=== PATIENT | female | born 1950 | race Caucasian/White ===

== ENCOUNTER 2020-04-13 13:12 | Inpatient (IN) ==
[2020-04-13] MEDS ORDERED: FUROSEMIDE 100 MG/10 ML VIAL IV STA (13:44)
[2020-04-13 14:11] LABS: Albumin 3.4 G/DL (3.4-5.0); Bilirubin,Total 0.7 MG/DL (0.2-1.0); Osmolality,Calculated 285.4 MOS/KG (273-304); Total Protein 6.6 G/DL (6.4-8.3)
[2020-04-13 14:29] LABS: Basophils # 0.1 10*3/uL (0.0-0.2); Basophils % 0.6 % (0.0-0.8); Eosinophils # 0.2 10*3/uL (0.0-0.87); Hematocrit 37.1 VOL% (35.7-47.0); Hemoglobin 10.5 GM/DL (12.0-16.0); Immature Granulocytes % 0.2 %; Immature Granulocytes Absolute 0.02 #; Lymphocytes # 1.9 10*3/uL (1.4-4.0); Lymphocytes % 21.9 % (21.3-54.2); Mean Corpuscular HGB Conc 28.3 GM/DL (32-36); Mean Corpuscular Volume 70.4 FL (87-102); Mean Platelet Volume 10.6 FL (9.6-12.0); Monocytes % 8.6 % (1.7-12.7); Neutrophils % 66.7 % (38.7-73.9); Platelet Count 419 T/CUMM (130-400); Red Blood Count 5.27 MC/CUMM (3.8-5.5); Red Cell Distribution Width 15.9 % (9.3-17.3); White Blood Count 8.5 T/CUMM (4-12)
[2020-04-13] MEDS ORDERED: DEXTROSE 50% 25 GM/50 ML VIAL IV PRN (15:28)
[2020-04-13] MEDS ORDERED: MAGNESIUM SULF RIDER 4 GM in PREMIX 1 EACH IV PRN (15:28)
[2020-04-13] MEDS ORDERED: MAGNESIUM SULF RIDER 2 GM in PREMIX 1 EACH IV PRN (15:28)
[2020-04-13] MEDS ORDERED: POTASSIUM CHLORIDE RIDER 10 MEQ in PREMIX 1 EACH IV PRN (15:28)
[2020-04-13] MEDS ORDERED: POTASSIUM CHLORIDE 20 MEQ/15 ML UDCUP PER TUBE PRN (15:28)
[2020-04-13] MEDS ORDERED: GLUCAGON 1 MG VIAL IM PRN (15:28)
[2020-04-13] MEDS ORDERED: diphenhydrAMINE CAP 25 MG CAPSULE PO PRN (15:35)
[2020-04-13] MEDS ORDERED: hydrALAZINE 20 MG/1 ML VIAL IV PRN (15:35)
[2020-04-13] MEDS ORDERED: CALCIUM CARBONATE CHEW 500 MG TABLET PO PRN (15:35)
[2020-04-13] MEDS ORDERED: PROMETHAZINE 25 MG TABLET PO PRN (15:35)
[2020-04-13] MEDS ORDERED: guaiFENesin/DM ER 600-30 MG TABLET PO PRN (15:35)
[2020-04-13] MEDS ORDERED: ACETAMINOPHEN 325 MG TABLET PO PRN (15:35)
[2020-04-13] MEDS ORDERED: NICOTINE 21 MG/24 HR PATCH TRANSDERM PRN (15:35)
[2020-04-13] MEDS ORDERED: DOCUSATE SODIUM 100 MG CAPSULE PO PRN (15:35)
[2020-04-13] MEDS ORDERED: ONDANSETRON 4 MG/2 ML VIAL IV PRN (15:35)
[2020-04-13] MEDS ORDERED: BISACODYL 5 MG TABLET PO PRN (15:35)
[2020-04-13] MEDS ORDERED: MORPHINE 4 MG/1 ML VIAL IV PRN (15:35)
[2020-04-13] MEDS ORDERED: PROMETHAZINE 25 MG/1 ML VIAL IM PRN (15:35)
[2020-04-13] MEDS ORDERED: ALUMINUM/MAGNES/SIMETH MAX STR 30 ML UDCUP PO PRN (15:35)
[2020-04-13] MEDS ORDERED: carvediloL 3.125 MG TABLET PO STA (15:35)
[2020-04-13] MEDS ORDERED: SIMETHICONE CHEW 125 MG TABLET PO PRN (15:35)
[2020-04-13] MEDS ORDERED: LACTULOSE 20 GM/30 ML UDCUP PO PRN (15:35)
[2020-04-13 15:41] LABS: Hypochromasia 1+; Microcytosis 2+; Poikilocytosis 1+
[2020-04-13] MEDS ORDERED: ENOXAPARIN 40 MG/0.4 ML SYRINGE SUBCUT STA (15:41)
[2020-04-13 15:42] LABS: Platelet Estimate Normal
[2020-04-13 15:57] LABS: Ferritin 14.1 ng/ml (8-252)
[2020-04-13] MEDS ORDERED: ENOXAPARIN 40 MG/0.4 ML SYRINGE SUBCUT SCH (16:00)
[2020-04-13] MEDS: INSULIN REGULAR 100 UNIT/ML SUBCUT SCH ×2 (17:18→21:30)
[2020-04-13] MEDS: AZITHROMYCIN INJ 500 MG in SODIUM CHLORIDE 0.9% 250 ML IV SCH (21:30)
[2020-04-13] MEDS: cefTRIAXone 1,000 MG in SYRINGE 1 EACH IV SCH (21:45)
[2020-04-13] MEDS: carvediloL 6.25 MG TABLET PO SCH (22:20)
[2020-04-14] MEDS: ALBUTEROL/IPRATROPIUM 3 ML NEB RESP TX SCH ×2 (01:10→19:09)
[2020-04-14 06:10] LABS: Basophils # 0.1 10*3/uL (0.0-0.2); Eosinophils # 0.4 10*3/uL (0.0-0.87); Eosinophils % 5.1 % (0.00-10.9); Hematocrit 35.5 VOL% (35.7-47.0); Immature Granulocytes % 0.4 %; Immature Granulocytes Absolute 0.03 #; Lymphocytes # 2.2 10*3/uL (1.4-4.0); Lymphocytes % 29.7 % (21.3-54.2); Mean Corpuscular HGB Conc 28.5 GM/DL (32-36); Mean Corpuscular Volume 71.3 FL (87-102); Mean Platelet Volume 10.4 FL (9.6-12.0); Monocytes % 9.4 % (1.7-12.7); Neutrophils % 54.4 % (38.7-73.9); Platelet Count 427 T/CUMM (130-400); Red Blood Count 4.98 MC/CUMM (3.8-5.5); Red Cell Distribution Width 16.1 % (9.3-17.3); White Blood Count 7.2 T/CUMM (4-12)
[2020-04-14 06:15] LABS: Bilirubin,Total 1.6 MG/DL (0.2-1.0); Calcium 8.9 MG/DL (8.5-10.1); Osmolality,Calculated 276.8 MOS/KG (273-304); Total Protein 6.2 G/DL (6.4-8.3)
[2020-04-14 06:21] LABS: Thyroid Stimulating Hormone 6.9 uIU/ml (0.358-3.74)
[2020-04-14 06:24] LABS: Risk Ratio 2.7
[2020-04-14 06:35] LABS: Hemoglobin 10.1 GM/DL (12.0-16.0)
[2020-04-14 06:40] LABS: Hypochromasia 1+; Microcytosis 2+; Ovalocytes Slight
[2020-04-14 06:42] LABS: Target Cells Slight
[2020-04-14 06:45] LABS: Platelet Estimate Increased
[2020-04-14 08:18] LABS: INR 1.1; PT Patient Result 11.7 SECS (9.8-11.9)
[2020-04-14] MEDS ORDERED: LISINOPRIL/HCTZ 20-25 MG TABLET PO SCH (09:00)
[2020-04-14 10:09] LABS: Lymphocytes,Pleural Fluid 83 %; Monocytes,Pleural Fluid 8 %; Neutrophils,Pleural Fluid 9 %; RBC,Pleural Fluid 712 T/CUMM
[2020-04-14] MEDS: INSULIN REGULAR 100 UNIT/ML SUBCUT SCH ×4 (10:22→21:46)
[2020-04-14 10:49] LABS: Total Protein,Body Fluid 2.8 G/DL
[2020-04-14] MEDS: ASPIRIN EC 81 MG TABLET PO SCH (11:35)
[2020-04-14] MEDS: carvediloL 6.25 MG TABLET PO SCH ×2 (11:35→21:44)
[2020-04-14] MEDS: PANTOPRAZOLE 40 MG TABLET PO SCH (11:35)
[2020-04-14] MEDS: FUROSEMIDE 40 MG/4 ML VIAL IV SCH ×2 (11:37→16:56)
[2020-04-14] MEDS: GLIMEPIRIDE 4 MG TABLET PO SCH (11:37)
[2020-04-14] MEDS: POTASSIUM CHLORIDE 20 MEQ TABLET PO PRN (16:57)
[2020-04-14] MEDS: AZITHROMYCIN INJ 500 MG in SODIUM CHLORIDE 0.9% 250 ML IV SCH (21:45)
[2020-04-14] MEDS: cefTRIAXone 1,000 MG in SYRINGE 1 EACH IV SCH (21:46)
[2020-04-15] MEDS: ALBUTEROL/IPRATROPIUM 3 ML NEB RESP TX SCH ×4 (01:06→20:38)
[2020-04-15] MEDS ORDERED: LORATADINE 10 MG TABLET PO PRN (05:05)
[2020-04-15] MEDS: FLUTICASONE 50 MCG NASAL SPRAY 16 GM BOTTLE BOTH NARES PRN (05:49)
[2020-04-15 06:30] LABS: Albumin 2.6 G/DL (3.4-5.0); Bilirubin,Total 0.5 MG/DL (0.2-1.0); Calcium 8.3 MG/DL (8.5-10.1); Osmolality,Calculated 279.8 MOS/KG (273-304); Total Protein 5.6 G/DL (6.4-8.3)
[2020-04-15 06:40] LABS: Basophils # 0.1 10*3/uL (0.0-0.2); Basophils % 0.6 % (0.0-0.8); Eosinophils # 0.3 10*3/uL (0.0-0.87); Eosinophils % 2.9 % (0.00-10.9); Hematocrit 35.5 VOL% (35.7-47.0); Immature Granulocytes % 0.3 %; Immature Granulocytes Absolute 0.03 #; Lymphocytes % 22.8 % (21.3-54.2); Mean Corpuscular HGB Conc 28.2 GM/DL (32-36); Mean Corpuscular Volume 71.9 FL (87-102); Mean Platelet Volume 10.6 FL (9.6-12.0); Monocytes % 10.3 % (1.7-12.7); Neutrophils % 63.1 % (38.7-73.9); Platelet Count 406 T/CUMM (130-400); Red Blood Count 4.94 MC/CUMM (3.8-5.5); White Blood Count 8.7 T/CUMM (4-12)
[2020-04-15 06:44] LABS: Anisocytosis 1+; Hypochromasia Slight; Platelet Estimate Normal
[2020-04-15] MEDS: INSULIN REGULAR 100 UNIT/ML SUBCUT SCH ×4 (09:00→21:31)
[2020-04-15] MEDS ORDERED: LOSARTAN 25 MG TABLET PO SCH (09:00)
[2020-04-15] MEDS: PANTOPRAZOLE 40 MG TABLET PO SCH (09:24)
[2020-04-15] MEDS: ASPIRIN EC 81 MG TABLET PO SCH (09:25)
[2020-04-15] MEDS: FUROSEMIDE 40 MG/4 ML VIAL IV SCH ×2 (09:25→15:09)
[2020-04-15] MEDS: GLIMEPIRIDE 4 MG TABLET PO SCH (09:25)
[2020-04-15] MEDS: carvediloL 6.25 MG TABLET PO SCH ×2 (09:25→21:30)
[2020-04-15] MEDS: ENOXAPARIN 40 MG/0.4 ML SYRINGE SUBCUT SCH ×2 (09:32→21:30)
[2020-04-15] MEDS: AZITHROMYCIN INJ 500 MG in SODIUM CHLORIDE 0.9% 250 ML IV SCH (21:24)
[2020-04-15] MEDS: cefTRIAXone 1,000 MG in SYRINGE 1 EACH IV SCH (21:30)
[2020-04-16] MEDS: ALBUTEROL/IPRATROPIUM 3 ML NEB RESP TX SCH ×4 (03:25→19:12)
[2020-04-16 05:33] LABS: Basophils % 0.5 % (0.0-0.8); Eosinophils # 0.2 10*3/uL (0.0-0.87); Eosinophils % 2.8 % (0.00-10.9); Hematocrit 32.1 VOL% (35.7-47.0); Immature Granulocytes % 0.3 %; Immature Granulocytes Absolute 0.02 #; Lymphocytes # 2.3 10*3/uL (1.4-4.0); Lymphocytes % 28.2 % (21.3-54.2); Mean Corpuscular Volume 70.9 FL (87-102); Mean Platelet Volume 10.6 FL (9.6-12.0); Monocytes % 11.9 % (1.7-12.7); Neutrophils % 56.3 % (38.7-73.9); Platelet Count 344 T/CUMM (130-400); Red Blood Count 4.53 MC/CUMM (3.8-5.5)
[2020-04-16 05:44] LABS: Anisocytosis 1+; Hypochromasia 2+; Microcytosis 1+; Platelet Estimate Normal; Target Cells Few
[2020-04-16 05:47] LABS: Albumin 2.6 G/DL (3.4-5.0); Bilirubin,Total 0.6 MG/DL (0.2-1.0); Calcium 8.3 MG/DL (8.5-10.1); Total Protein 5.5 G/DL (6.4-8.3)
[2020-04-16 07:40] LABS: % Iron Saturation 4.4 % (18-50); Ferritin 16.7 ng/ml (8-252)
[2020-04-16 07:55] LABS: Folate 17.4 NG/ML (5.4-24.0)
[2020-04-16] MEDS ORDERED: IRON SUCROSE 300 MG in SODIUM CHLORIDE 0.9% 100 ML IV ONE (09:01)
[2020-04-16] MEDS: FUROSEMIDE 40 MG/4 ML VIAL IV SCH ×2 (10:02→16:20)
[2020-04-16] MEDS: INSULIN REGULAR 100 UNIT/ML SUBCUT SCH ×4 (10:03→20:59)
[2020-04-16] MEDS ORDERED: diphenhydrAMINE CAP 25 MG CAPSULE PO ONE (12:23)
[2020-04-16] MEDS ORDERED: DIAZEPAM 5 MG TABLET PO ONE (12:23)
[2020-04-16] MEDS: ENOXAPARIN 40 MG/0.4 ML SYRINGE SUBCUT SCH ×2 (12:36→22:06)
[2020-04-16] MEDS: ASPIRIN EC 81 MG TABLET PO SCH (12:54)
[2020-04-16] MEDS: GLIMEPIRIDE 4 MG TABLET PO SCH (13:10)
[2020-04-16] MEDS ORDERED: LIDOCAINE 1% 20 ML VIAL ONE (13:12)
[2020-04-16] MEDS: carvediloL 6.25 MG TABLET PO SCH ×2 (13:12→22:08)
[2020-04-16] MEDS: SACUBITRIL/VALSARTAN 49-51 MG TABLET PO SCH ×2 (13:12→22:07)
[2020-04-16] MEDS ORDERED: NITROGLYCERIN DRIP 50 MG/250 ML BOTTLE IV ONE (13:15)
[2020-04-16] MEDS ORDERED: MIDAZOLAM 2 MG/2 ML VIAL ONE (13:16)
[2020-04-16] MEDS ORDERED: HYDROmorphone 2 MG/1 ML VIAL ONE (13:16)
[2020-04-16] MEDS ORDERED: VERAPAMIL 5 MG/2 ML VIAL ONE ×2 (13:16→13:45)
[2020-04-16] MEDS ORDERED: ENOXAPARIN 60 MG/0.6 ML SYRINGE ONE (13:36)
[2020-04-16] MEDS ORDERED: ENOXAPARIN 30 MG/0.3 ML SYRINGE ONE (13:56)
[2020-04-16] MEDS ORDERED: TIROFIBAN 5,000 MCG/100 ML PREMIX IV ONE (14:37)
[2020-04-16] MEDS ORDERED: NITROGLYCERIN SL 0.4 MG TABLET SL PRN (14:49)
[2020-04-16] MEDS ORDERED: TICAGRELOR 90 MG TABLET PO ONE (14:52)
[2020-04-16] MEDS ORDERED: NALOXONE 0.4 MG/ML VIAL ONE (15:02)
[2020-04-16] MEDS ORDERED: NALOXONE 0.4 MG/ML VIAL IV STA (15:04)
[2020-04-16] MEDS ORDERED: ALBUTEROL/IPRATROPIUM 3 ML NEB RESP TX STA (15:05)
[2020-04-16] MEDS ORDERED: FUROSEMIDE 40 MG/4 ML VIAL ONE (15:07)
[2020-04-16] MEDS ORDERED: FUROSEMIDE 40 MG/4 ML VIAL IV ONE (15:09)
[2020-04-16] MEDS ORDERED: TIROFIBAN 5,000 MCG/100 ML PREMIX IV SCH (16:00)
[2020-04-16] MEDS: PANTOPRAZOLE 40 MG TABLET PO SCH (16:16)
[2020-04-16 17:16] LABS: Apearance,Urine CLEAR (Clear); Bilirubin,Urine Negative (Negative); Blood, Urine Negative (Negative); Glucose,Urine (UA) 50 mg/dL (Negative); Ketones,Urine Negative (Negative); Mucus,Urine Occasional /LPF (Occasional); Nitrite,Urine Negative (Negative); Protein,Urine Negative; RBC,Urine <1 /HPF (0-4); Urine Color Colorless (Yellow); Urine Specific Gravity 1.011 (1.001-1.035); Urine Urobilinogen < 2.0 EU/DL (0.2-1.0)
[2020-04-16 18:38] LABS: Troponin I 0.038 NG/ML (0.00-0.045)
[2020-04-16] MEDS: AZITHROMYCIN INJ 500 MG in SODIUM CHLORIDE 0.9% 250 ML IV SCH (22:06)
[2020-04-16] MEDS: cefTRIAXone 1,000 MG in SYRINGE 1 EACH IV SCH (22:06)
[2020-04-16] MEDS: FERROUS SULFATE 325 MG TABLET PO SCH (22:07)
[2020-04-16] MEDS: TICAGRELOR 90 MG TABLET PO SCH (22:07)
[2020-04-17 00:26] LABS: Specimen Source THROAT
[2020-04-17] MEDS: ALBUTEROL/IPRATROPIUM 3 ML NEB RESP TX SCH ×4 (03:37→19:40)
[2020-04-17 04:54] LABS: Basophils % 0.6 % (0.0-0.8); Eosinophils # 0.1 10*3/uL (0.0-0.87); Eosinophils % 2.2 % (0.00-10.9); Hematocrit 32.4 VOL% (35.7-47.0); Hemoglobin 9.1 GM/DL (12.0-16.0); Immature Granulocytes % 0.3 %; Immature Granulocytes Absolute 0.02 #; Mean Corpuscular HGB Conc 28.1 GM/DL (32-36); Mean Corpuscular Volume 70.7 FL (87-102); Mean Platelet Volume 10.7 FL (9.6-12.0); Monocytes % 11.4 % (1.7-12.7); Neutrophils % 69.5 % (38.7-73.9); Platelet Count 336 T/CUMM (130-400); Red Blood Count 4.58 MC/CUMM (3.8-5.5); Red Cell Distribution Width 16.2 % (9.3-17.3); White Blood Count 6.5 T/CUMM (4-12)
[2020-04-17 05:12] LABS: Albumin 2.6 G/DL (3.4-5.0); Bilirubin,Total 0.9 MG/DL (0.2-1.0); Calcium 8.4 MG/DL (8.5-10.1); Osmolality,Calculated 277.5 MOS/KG (273-304)
[2020-04-17 06:05] LABS: Anisocytosis 1+; Platelet Estimate Normal
[2020-04-17 06:06] LABS: Polychromasia Slight
[2020-04-17] MEDS: INSULIN REGULAR 100 UNIT/ML SUBCUT SCH ×4 (08:00→21:49)
[2020-04-17] MEDS: ENOXAPARIN 40 MG/0.4 ML SYRINGE SUBCUT SCH ×2 (08:45→21:49)
[2020-04-17] MEDS: FUROSEMIDE 40 MG/4 ML VIAL IV SCH ×2 (08:45→16:50)
[2020-04-17] MEDS: GLIMEPIRIDE 4 MG TABLET PO SCH (09:00)
[2020-04-17] MEDS: ASPIRIN EC 81 MG TABLET PO SCH (09:10)
[2020-04-17] MEDS: TICAGRELOR 90 MG TABLET PO SCH ×2 (09:10→21:47)
[2020-04-17] MEDS: PANTOPRAZOLE 40 MG TABLET PO SCH (09:10)
[2020-04-17] MEDS: carvediloL 6.25 MG TABLET PO SCH ×2 (09:10→21:47)
[2020-04-17] MEDS: SACUBITRIL/VALSARTAN 49-51 MG TABLET PO SCH ×2 (09:10→21:46)
[2020-04-17] MEDS: FERROUS SULFATE 325 MG TABLET PO SCH ×2 (09:10→21:47)
[2020-04-17] MEDS: ROSUVASTATIN 20 MG TABLET PO SCH (21:46)
[2020-04-17] MEDS: cefTRIAXone 1,000 MG in SYRINGE 1 EACH IV SCH (21:49)
[2020-04-17] MEDS: AZITHROMYCIN INJ 500 MG in SODIUM CHLORIDE 0.9% 250 ML IV SCH (21:50)
[2020-04-18] MEDS: ALBUTEROL/IPRATROPIUM 3 ML NEB RESP TX SCH ×4 (02:48→19:09)
[2020-04-18 06:28] LABS: Albumin 2.2 G/DL (3.4-5.0); Bilirubin,Total 1.1 MG/DL (0.2-1.0); Calcium 8.1 MG/DL (8.5-10.1); Total Protein 5.2 G/DL (6.4-8.3)
[2020-04-18 06:51] LABS: Basophils % 0.4 % (0.0-0.8); Eosinophils # 0.3 10*3/uL (0.0-0.87); Eosinophils % 4.4 % (0.00-10.9); Hematocrit 32.4 VOL% (35.7-47.0); Immature Granulocytes % 0.1 %; Immature Granulocytes Absolute 0.01 #; Lymphocytes # 1.6 10*3/uL (1.4-4.0); Lymphocytes % 22.7 % (21.3-54.2); Mean Corpuscular HGB Conc 27.8 GM/DL (32-36); Mean Corpuscular Volume 71.2 FL (87-102); Mean Platelet Volume 10.7 FL (9.6-12.0); Monocytes % 14.4 % (1.7-12.7); Platelet Count 324 T/CUMM (130-400); Red Blood Count 4.55 MC/CUMM (3.8-5.5); Red Cell Distribution Width 16.4 % (9.3-17.3); White Blood Count 6.9 T/CUMM (4-12)
[2020-04-18 07:12] LABS: Platelet Estimate Normal
[2020-04-18 07:13] LABS: Anisocytosis 1+
[2020-04-18] MEDS ORDERED: IRON SUCROSE 300 MG in SODIUM CHLORIDE 0.9% 100 ML IV ONE (08:00)
[2020-04-18] MEDS ORDERED: IRON SUCROSE 100 MG/5 ML VIAL IV SCH ×2 (09:00)
[2020-04-18] MEDS: INSULIN REGULAR 100 UNIT/ML SUBCUT SCH ×4 (10:26→22:41)
[2020-04-18] MEDS: FERROUS SULFATE 325 MG TABLET PO SCH ×2 (10:27→22:42)
[2020-04-18] MEDS: FUROSEMIDE 40 MG/4 ML VIAL IV SCH ×2 (10:27→17:24)
[2020-04-18] MEDS: ENOXAPARIN 40 MG/0.4 ML SYRINGE SUBCUT SCH ×2 (10:27→22:41)
[2020-04-18] MEDS: TICAGRELOR 90 MG TABLET PO SCH ×2 (10:27→22:44)
[2020-04-18] MEDS: POTASSIUM CHLORIDE 20 MEQ TABLET PO PRN (10:28)
[2020-04-18] MEDS: PANTOPRAZOLE 40 MG TABLET PO SCH (10:28)
[2020-04-18] MEDS: ASPIRIN EC 81 MG TABLET PO SCH (10:28)
[2020-04-18] MEDS: SACUBITRIL/VALSARTAN 49-51 MG TABLET PO SCH ×2 (10:28→22:42)
[2020-04-18] MEDS: carvediloL 6.25 MG TABLET PO SCH ×2 (10:28→22:41)
[2020-04-18] MEDS: GLIMEPIRIDE 4 MG TABLET PO SCH (10:29)
[2020-04-18] MEDS: methylPREDNISolone SOD SUC 40 MG/1 ML VIAL IV SCH ×2 (10:42→17:25)
[2020-04-18] MEDS: FLUTICASONE 50 MCG NASAL SPRAY 16 GM BOTTLE BOTH NARES PRN (10:56)
[2020-04-18] MEDS: AZITHROMYCIN INJ 500 MG in SODIUM CHLORIDE 0.9% 250 ML IV SCH (12:22)
[2020-04-18] MEDS: cefTRIAXone 1,000 MG in SYRINGE 1 EACH IV SCH (22:40)
[2020-04-18] MEDS: ROSUVASTATIN 20 MG TABLET PO SCH (22:41)
[2020-04-19] MEDS: ALBUTEROL/IPRATROPIUM 3 ML NEB RESP TX SCH ×2 (02:00→07:00)
[2020-04-19] MEDS: methylPREDNISolone SOD SUC 40 MG/1 ML VIAL IV SCH ×3 (03:21→10:40)
[2020-04-19 04:15] LABS: Troponin I 0.089 NG/ML (0.00-0.045)
[2020-04-19 07:37] LABS: Albumin 2.5 G/DL (3.4-5.0); Bilirubin,Total 0.7 MG/DL (0.2-1.0); Calcium 8.3 MG/DL (8.5-10.1); Total Protein 5.9 G/DL (6.4-8.3)
[2020-04-19 07:45] LABS: Basophils % 0.1 % (0.0-0.8); Hematocrit 32.4 VOL% (35.7-47.0); Immature Granulocytes % 0.6 %; Immature Granulocytes Absolute 0.04 #; Lymphocytes # 0.5 10*3/uL (1.4-4.0); Lymphocytes % 7.6 % (21.3-54.2); Mean Corpuscular HGB Conc 28.4 GM/DL (32-36); Mean Corpuscular Volume 70.7 FL (87-102); Mean Platelet Volume 10.7 FL (9.6-12.0); Monocytes % 2.5 % (1.7-12.7); Neutrophils % 89.2 % (38.7-73.9); Platelet Count 323 T/CUMM (130-400); Red Blood Count 4.58 MC/CUMM (3.8-5.5); Red Cell Distribution Width 16.3 % (9.3-17.3); White Blood Count 6.7 T/CUMM (4-12)
[2020-04-19 07:47] LABS: Hemoglobin 9.2 GM/DL (12.0-16.0)
[2020-04-19 07:48] LABS: Hypochromasia 1+; Platelet Estimate Adequate
[2020-04-19] MEDS: FERROUS SULFATE 325 MG TABLET PO SCH (10:20)
[2020-04-19] MEDS: POTASSIUM CHLORIDE 20 MEQ TABLET PO PRN (10:20)
[2020-04-19] MEDS: PANTOPRAZOLE 40 MG TABLET PO SCH (10:20)
[2020-04-19] MEDS: carvediloL 6.25 MG TABLET PO SCH (10:20)
[2020-04-19] MEDS: INSULIN REGULAR 100 UNIT/ML SUBCUT SCH ×2 (10:20→12:17)
[2020-04-19] MEDS: ASPIRIN EC 81 MG TABLET PO SCH (10:20)
[2020-04-19] MEDS: GLIMEPIRIDE 4 MG TABLET PO SCH (10:20)
[2020-04-19] MEDS: ENOXAPARIN 40 MG/0.4 ML SYRINGE SUBCUT SCH (10:20)
[2020-04-19] MEDS: TICAGRELOR 90 MG TABLET PO SCH (10:20)
[2020-04-19] MEDS: SACUBITRIL/VALSARTAN 49-51 MG TABLET PO SCH (10:20)
[2020-04-19] MEDS: FUROSEMIDE 40 MG/4 ML VIAL IV SCH ×2 (10:21→10:39)
[2020-04-19] MEDS: AZITHROMYCIN INJ 500 MG in SODIUM CHLORIDE 0.9% 250 ML IV SCH ×2 (10:22→10:40)
[2020-04-19 12:15] VITALS: BP 127/69
== END 2020-04-19 13:15 | disposition swing bed (61) | DRG 246 ==
LOC: N.ED 13:12 → N.EDINP 13:12 → SUATTDRO 17:30 → N.EDINP 19:27 → N.TELES 19:51 → SUATTDRO 04-15 09:13 → N.CVR 04-16 15:28 → N.ICU 04-16 19:24 → N.TELES 04-17 12:00
PROVIDERS: ADMIT Internal Medicine; ATTEND Internal Medicine
PROC: CLCCHCL (ICD-10-PCS; 2020-04-16 13:45)

== ENCOUNTER 2020-05-04 11:32 | Observation (INO) ==
[2020-05-04] MEDS: DEXTROSE 5% 1,000 ML IV SCH ×2 (12:10→20:54)
[2020-05-04 12:59] LABS: Albumin 3.5 G/DL (3.4-5.0); Bilirubin,Total 0.7 MG/DL (0.2-1.0); Calcium 8.6 MG/DL (8.5-10.1); Osmolality,Calculated 282.7 MOS/KG (273-304); Total Protein 6.6 G/DL (6.4-8.3)
[2020-05-04 13:22] LABS: Basophils % 0.4 % (0.0-0.8); Eosinophils # 0.2 10*3/uL (0.0-0.87); Hemoglobin 11.9 GM/DL (12.0-16.0); Immature Granulocytes % 0.4 %; Immature Granulocytes Absolute 0.04 #; Lymphocytes # 1.6 10*3/uL (1.4-4.0); Mean Corpuscular Volume 77.4 FL (87-102); Mean Platelet Volume 11.4 FL (9.6-12.0); Monocytes % 7.5 % (1.7-12.7); Neutrophils % 74.7 % (38.7-73.9); Platelet Count 239 T/CUMM (130-400); White Blood Count 10.6 T/CUMM (4-12)
[2020-05-04 13:36] LABS: Amorphous Crystals,Urine Occasional /HPF (Few); Bilirubin,Urine Negative (Negative); Blood, Urine Moderate mg/dL (Negative); Glucose,Urine (UA) >=500 mg/dL (Negative); Ketones,Urine Negative (Negative); Mucus,Urine Occasional /LPF (Occasional); Nitrite,Urine Negative (Negative); Protein,Urine 30 MG/DL; Squamous Epithelial Cell,Urine Occasional /HPF (0-10); Urine Appearance CLOUDY (Clear); Urine Color Yellow (Yellow); Urine Specific Gravity 1.014 (1.001-1.035); Urine Urobilinogen < 2.0 EU/DL (0.2-1.0)
[2020-05-04] MEDS ORDERED: ACETAMINOPHEN 325 MG TABLET PO PRN (15:47)
[2020-05-04] MEDS ORDERED: DEXTROSE 50% 25 GM/50 ML VIAL IV PRN (15:47)
[2020-05-04] MEDS ORDERED: ONDANSETRON 4 MG/2 ML VIAL IV PRN (15:47)
[2020-05-04] MEDS ORDERED: GLUCAGON 1 MG VIAL IM PRN (15:47)
[2020-05-04] MEDS: INSULIN LISPRO 100 UNIT/ML SUBCUT SCH ×2 (19:51→21:01)
[2020-05-04] MEDS: ENOXAPARIN 30 MG/0.3 ML SYRINGE SUBCUT SCH (20:53)
[2020-05-05] MEDS: INSULIN LISPRO 100 UNIT/ML SUBCUT SCH ×6 (01:07→21:47)
[2020-05-05 03:40] LABS: Basophils # 0.1 10*3/uL (0.0-0.2); Basophils % 0.7 % (0.0-0.8); Eosinophils # 0.2 10*3/uL (0.0-0.87); Eosinophils % 3.2 % (0.00-10.9); Hematocrit 34.5 VOL% (35.7-47.0); Hemoglobin 10.2 GM/DL (12.0-16.0); Immature Granulocytes % 0.3 %; Immature Granulocytes Absolute 0.02 #; Lymphocytes # 2.5 10*3/uL (1.4-4.0); Lymphocytes % 34.7 % (21.3-54.2); Mean Corpuscular HGB Conc 29.6 GM/DL (32-36); Mean Corpuscular Volume 76.8 FL (87-102); Monocytes % 10.7 % (1.7-12.7); Neutrophils % 50.4 % (38.7-73.9); Platelet Count 218 T/CUMM (130-400); Red Blood Count 4.49 MC/CUMM (3.8-5.5); Red Cell Distribution Width 26.7 % (9.3-17.3); White Blood Count 7.3 T/CUMM (4-12)
[2020-05-05 03:56] LABS: Albumin 2.9 G/DL (3.4-5.0); Bilirubin,Total 0.8 MG/DL (0.2-1.0); Calcium 8.6 MG/DL (8.5-10.1); Osmolality,Calculated 278.8 MOS/KG (273-304); Thyroid Stimulating Hormone 7.96 uIU/ml (0.358-3.74)
[2020-05-05 04:04] LABS: Hypochromasia 1+; Platelet Estimate Adequate
[2020-05-05] MEDS: DEXTROSE 5% 1,000 ML IV SCH ×4 (05:53→19:22)
[2020-05-05] MEDS: ASPIRIN EC 81 MG TABLET PO SCH (08:21)
[2020-05-05] MEDS: TICAGRELOR 90 MG TABLET PO SCH ×2 (08:21→21:47)
[2020-05-05] MEDS: ROSUVASTATIN 20 MG TABLET PO SCH (08:22)
[2020-05-05] MEDS: PANTOPRAZOLE 40 MG TABLET PO SCH (08:22)
[2020-05-05] MEDS: carvediloL 6.25 MG TABLET PO SCH ×2 (08:22→21:47)
[2020-05-05] MEDS: ENOXAPARIN 30 MG/0.3 ML SYRINGE SUBCUT SCH (21:47)
[2020-05-06] MEDS: INSULIN LISPRO 100 UNIT/ML SUBCUT SCH ×4 (02:00→16:14)
[2020-05-06 05:13] LABS: Basophils # 0.1 10*3/uL (0.0-0.2); Basophils % 0.8 % (0.0-0.8); Eosinophils # 0.3 10*3/uL (0.0-0.87); Eosinophils % 4.1 % (0.00-10.9); Hematocrit 33.4 VOL% (35.7-47.0); Immature Granulocytes % 0.1 %; Immature Granulocytes Absolute 0.01 #; Lymphocytes # 2.7 10*3/uL (1.4-4.0); Lymphocytes % 37.4 % (21.3-54.2); Mean Corpuscular HGB Conc 29.9 GM/DL (32-36); Mean Corpuscular Volume 76.6 FL (87-102); Mean Platelet Volume 10.8 FL (9.6-12.0); Neutrophils % 47.6 % (38.7-73.9); Platelet Count 205 T/CUMM (130-400); Red Blood Count 4.36 MC/CUMM (3.8-5.5); Red Cell Distribution Width 26.2 % (9.3-17.3); White Blood Count 7.1 T/CUMM (4-12)
[2020-05-06 05:27] LABS: Burr Cells Slight; Hypochromasia 1+; Microcytosis 1+; Ovalocytes Slight; Platelet Estimate Adequate
[2020-05-06 05:31] LABS: Bilirubin,Total 0.5 MG/DL (0.2-1.0); Calcium 8.8 MG/DL (8.5-10.1); Osmolality,Calculated 280.7 MOS/KG (273-304)
[2020-05-06 05:34] LABS: Risk Ratio 2.53; VLDL CHOLESTEROL 20.4 MG/DL
[2020-05-06] MEDS: DEXTROSE 5% 1,000 ML IV SCH (06:26)
[2020-05-06] MEDS ORDERED: POTASSIUM CHLORIDE 20 MEQ TABLET PO PRN (07:02)
[2020-05-06] MEDS: PANTOPRAZOLE 40 MG TABLET PO SCH (08:33)
[2020-05-06] MEDS: ASPIRIN EC 81 MG TABLET PO SCH (08:33)
[2020-05-06] MEDS: TICAGRELOR 90 MG TABLET PO SCH (08:33)
[2020-05-06] MEDS: carvediloL 6.25 MG TABLET PO SCH (08:33)
[2020-05-06] MEDS: ROSUVASTATIN 20 MG TABLET PO SCH (08:33)
[2020-05-06 12:35] VITALS: BP 108/65
== END 2020-05-06 16:34 | disposition home or self-care (01) ==
LOC: N.ED 11:32 → N.EDINP 11:32 → SUATTDRO 14:48 → N.TELES 18:28
PROVIDERS: ADMIT Internal Medicine; ATTEND Internal Medicine